=== PATIENT | female | born 1955 | race Caucasian/White ===

== ENCOUNTER 2022-09-26 11:22 | Inpatient (IN) | payer OTHER ==
[~2022-09-26 11:22] MED LIST: Iopamidol-370 76% 500 ML MDV (1 ML CHARGE) ONE
[2022-09-26 11:56] LABS: Hemoglobin 8.5 g/dL (12.0-16.0); Mean Corpuscular HGB CONC 30.4 g/dL (32.0-36.0); Mean Corpuscular Hemoglobin 20.4 pg (27.0-31.0); Mean Corpuscular Volume 67.3 fl (78.0-98.0); Mean Platelet Volume 8.5 fL (7.4-10.4); Platelet Count 844 10x3/uL (130-400); RBC Distribution Width 16.9 % (11.5-14.5); Red Blood Cell (RBC) Count 4.16 mill/uL (4.20-5.40); White Blood Cell (WBC) Count 25.5 10x3/uL (4.8-10.8)
[2022-09-26 12:01] LABS: Delete Auto Diff?? YES; Manual Diff?? YES
[2022-09-26 12:18] LABS: ALT (SGPT) 17 U/L (8-55); AST (SGOT) 13 U/L (5-34); Alkaline Phosphatase 64 U/L (40-110); Anion Gap 15 mmol/L (10-20); BUN (Urea Nitrogen) 14 mg/dL (9.8-20.1); Bilirubin, Total 0.4 mg/dL (0.2-1.2); Calc. Creatinine Clearance 0 mL/min (70-130); Calcium 8.6 mg/dL (7.8-10.44); Carbon Dioxide 22 mmol/L (23-31); Chloride 109 mmol/L (98-107); Estimated GFR 87; Globulin 2.9 g/dL (2.4-3.5); Glucose 127 mg/dL (80-115); Lipase Less than 4 U/L (8-78); Potassium 3.6 mmol/L (3.5-5.1); Protein, Total 5.9 g/dL (5.8-8.1); Sodium 142 mmol/L (136-145)
[2022-09-26 12:43] LABS: Anisocytosis SLIGHT = 6-15 cells HPF (0-5); Band 15 % (5-11); Burr Cells SLIGHT = 2-5 cells HPF (0-1); CellaVision Operator ID LAB.MJL; Elliptocytes SLIGHT = 2-5 cells HPF (0-1); Hypochromia SLIGHT = 6-15 cells HPF (0-5); Lymphocytes 2 % (21-51); Microcytosis SLIGHT = 6-15 cells HPF (0-5); Monocytes 4 % (0-10); Neutrophil 79 % (42-75); Ovalocytes SLIGHT = 2-5 cells HPF (0-1); Platelet Adequacy Comment Platelets Increased; Poikilocytosis SLIGHT = 6-15 cells HPF (0-5); Polychromasia SLIGHT = 2-3 cells HPF (0-2); Total Cell Count 100
[2022-09-26 13:10] LABS: INR-International Normal Ratio 1.1; PTT 27.5 sec (22.9-36.1); Prothrombin Time 14.2 sec (12.0-14.7)
[2022-09-26] MEDS ORDERED: Piperacillin/Tazobactam 3.375 GM VIAL ONE (13:33)
[2022-09-26 14:05] LABS: Bacteria/HPF None Seen HPF (None Seen); Bilirubin 1+ (Negative); Blood, Urine Negative (Negative); CAUTI Indications for Culture Pelvic or flank pain; Clarity Clear (Clear); Glucose, Urine (Dipstick) Normal (Negative); Ketone, Urine Negative (Negative); Leukocyte Negative Leu/uL (Negative); Mucous/LPF Rare LPF (<2+); Nitrite Negative (Negative); Protein, Urine (Dipstick) 10 mg/dL (Neg-Trace); RBC/HPF 0-3 HPF (0-3); Squamous Epithelial 0-3 HPF (0-3); Urobilinogen 3 mg/dL (Less than 2); WBC/HPF 0-3 HPF (0-3); pH, Urine 5.5 (5.0-9.0)
[2022-09-26 14:07] LABS: Urine Culture Reflex No No
[2022-09-26] MEDS ORDERED: Fentanyl 250 MCG/5 ML VIAL ONE (17:10)
[2022-09-26] MEDS ORDERED: Midazolam HCl 2 mg/2 ml Vial ONE (17:10)
[2022-09-26] MEDS ORDERED: Magnesium 5 GM/10 ML VIAL ONE (17:23)
[2022-09-26] MEDS ORDERED: PHENYLEPHRINE-NS 100 MCG/ML 10 ML SYRINGE ONE (17:33)
[2022-09-26] MEDS ORDERED: Succinylcholine 200 MG/10 ml SYRINGE FS ONE (17:33)
[2022-09-26] MEDS ORDERED: PROPOFOL 200 MG/20 ML VIAL ONE (17:33)
[2022-09-26] MEDS ORDERED: Dexamethasone 20 MG/5 ML VIAL ONE (17:33)
[2022-09-26] MEDS ORDERED: Rocuronium Bromide 10 MG/ML (10ML VIAL) ONE (17:33)
[2022-09-26] MEDS ORDERED: Ondansetron PF 4 MG/2 ML Vial ONE (17:33)
[2022-09-26] MEDS ORDERED: Glycopyrrolate 0.2 MG/ML 5 ML SYRINGE ONE (17:33)
[2022-09-26] MEDS ORDERED: NEOSTIGMINE 3 MG/3 ML SYR 3 MG/3 ML SYRINGE ONE (17:33)
[2022-09-26] MEDS ORDERED: Ipratropium/Albuterol 3 ML NEB NEB PRN (19:11)
[2022-09-26] MEDS ORDERED: Morphine 2 MG/ML VIAL SLOW IVP PRN ×2 (19:11→22:51)
[2022-09-26] MEDS ORDERED: Morphine 4 MG/ML VIAL SLOW IVP PRN (19:11)
[2022-09-26] MEDS ORDERED: Promethazine HCl 25 MG/ML VIAL IM PRN ×3 (19:13→20:11)
[2022-09-26] MEDS ORDERED: HYDROmorphone 10 mg/100 ml CADD IVPB PRN (19:13)
[2022-09-26] MEDS ORDERED: diphenhydrAMINE 50 MG/ML VIAL IM PRN ×2 (19:13→20:11)
[2022-09-26] MEDS ORDERED: diphenhydrAMINE 25 MG CAP PO PRN ×2 (19:13→20:11)
[2022-09-26] MEDS ORDERED: Ondansetron PF 4 MG/2 ML Vial IVP PRN ×2 (19:13→20:11)
[2022-09-26] MEDS ORDERED: diphenhydrAMINE 50 MG/ML VIAL IVP PRN ×2 (19:13→20:11)
[2022-09-26] MEDS ORDERED: Naloxone HCl 0.4 mg/ml Vial IV PRN ×2 (19:13→20:11)
[2022-09-26] MEDS ORDERED: Zolpidem Tartrate 5 MG TAB PO PRN ×2 (19:13→20:11)
[2022-09-26] MEDS ORDERED: Communication Order-Pharmacy FS SCH ×2 (19:15→20:15)
[2022-09-26] MEDS ORDERED: Ketorolac Tromethamine 30 MG/ML VIAL IVP SCH (19:15)
[2022-09-26] MEDS ORDERED: SUGAMMADEX SODIUM 200 MG/2 ML VIAL ONE (19:52)
[2022-09-26] MEDS ORDERED: Ondansetron HCl/PF 4 MG/2 ML Vial IVP PRN (20:11)
[2022-09-26] MEDS ORDERED: FENTANYL 500 MCG/10 ML VIAL 2,000 MCG in Sodium Chloride 0.9% 60 ML IV PRN (20:11)
[2022-09-26] MEDS ORDERED: Famotidine/PF 20 mg/2ml Vial SLOW IVP SCH (21:00)
[2022-09-26] MEDS: Sodium Chloride 0.9% 1,000 ML IV SCH ×2 (21:55→22:21)
[2022-09-26] MEDS ORDERED: traMADol HCl 50 MG TAB PO PRN (22:52)
[2022-09-26 23:07] LABS: #Monocytes 0.8 thou/uL (0.11-0.59); #Neutrophils 22.4 thou/uL (1.40-6.50); %Basophils 0.2 % (0.0-1.0); %Lymphocytes 5.2 % (21.0-51.0); %Monocytes 3.1 % (0.0-10.0); Hemoglobin 8.4 g/dL (12.0-16.0); Mean Corpuscular HGB CONC 29.6 g/dL (32.0-36.0); Mean Corpuscular Hemoglobin 20.4 pg (27.0-31.0); Mean Corpuscular Volume 69.1 fl (78.0-98.0); Mean Platelet Volume 8.8 fL (7.4-10.4); RBC Distribution Width 17.1 % (11.5-14.5); Red Blood Cell (RBC) Count 4.11 mill/uL (4.20-5.40); White Blood Cell (WBC) Count 24.6 10x3/uL (4.8-10.8)
[2022-09-26 23:19] LABS: Platelet Count 727 10x3/uL (130-400)
[2022-09-26] MEDS: Lactated Ringer's 1,000 ML IV SCH (23:23)
[2022-09-26] MEDS: Ketorolac Tromethamine 30 MG/ML VIAL IVP SCH (23:23)
[2022-09-26 23:43] VITALS: BMI 25.8
[2022-09-27] MEDS: Acetaminophen 325 MG TAB PO SCH ×6 (00:58→22:07)
[2022-09-27] MEDS: Sodium Chloride 0.9% 1,000 ML IV SCH ×3 (00:59→17:23)
[2022-09-27] MEDS: Ketorolac Tromethamine 30 MG/ML VIAL IVP SCH ×3 (05:42→17:25)
[2022-09-27 07:16] LABS: #Monocytes 0.8 thou/uL (0.11-0.59); #Neutrophils 19.6 thou/uL (1.40-6.50); %Basophils 0.2 % (0.0-1.0); %Lymphocytes 5.9 % (21.0-51.0); %Monocytes 3.8 % (0.0-10.0); %Neutrophils 89.6 % (42.0-75.0); Hemoglobin 7.9 g/dL (12.0-16.0); Mean Corpuscular HGB CONC 29.4 g/dL (32.0-36.0); Mean Corpuscular Hemoglobin 20.6 pg (27.0-31.0); Mean Corpuscular Volume 70.1 fl (78.0-98.0); Mean Platelet Volume 8.7 fL (7.4-10.4); Platelet Count 709 10x3/uL (130-400); Red Blood Cell (RBC) Count 3.84 mill/uL (4.20-5.40); White Blood Cell (WBC) Count 21.9 10x3/uL (4.8-10.8)
[2022-09-27 07:30] LABS: INR-International Normal Ratio 1.1; PTT 30.2 sec (22.9-36.1); Prothrombin Time 14.5 sec (12.0-14.7)
[2022-09-27 07:41] LABS: Anion Gap 12 mmol/L (10-20); BUN (Urea Nitrogen) 8 mg/dL (9.8-20.1); Calc. Creatinine Clearance 100 mL/min (70-130); Calcium 8.3 mg/dL (7.8-10.44); Carbon Dioxide 24 mmol/L (23-31); Chloride 108 mmol/L (98-107); Estimated GFR 97; Glucose 116 mg/dL (80-115); Magnesium 2.4 mg/dL (1.6-2.6); Sodium 140 mmol/L (136-145)
[2022-09-27] MEDS: Lactated Ringer's 1,000 ML IV SCH (08:12)
[2022-09-27] MEDS: Ferrous Sulfate 325 MG TAB PO SCH (08:12)
[2022-09-27] MEDS: Famotidine/PF 20 mg/2ml Vial SLOW IVP SCH ×2 (08:13→22:09)
[2022-09-27 18:13] LABS: #Eosinphils 0.1 thou/uL (0.0-0.7); #Neutrophils 14.8 thou/uL (1.40-6.50); %Basophils 0.2 % (0.0-1.0); %Eosinophils 0.3 % (0.0-10.0); %Lymphocytes 12.1 % (21.0-51.0); %Monocytes 5.3 % (0.0-10.0); %Neutrophils 81.5 % (42.0-75.0); Hemoglobin 7.1 g/dL (12.0-16.0); Mean Corpuscular Hemoglobin 20.2 pg (27.0-31.0); Mean Corpuscular Volume 69.6 fl (78.0-98.0); Mean Platelet Volume 8.5 fL (7.4-10.4); Platelet Count 613 10x3/uL (130-400); RBC Distribution Width 17.1 % (11.5-14.5); Red Blood Cell (RBC) Count 3.52 mill/uL (4.20-5.40); White Blood Cell (WBC) Count 18.1 10x3/uL (4.8-10.8)
[2022-09-27 18:34] LABS: Anisocytosis SLIGHT = 6-15 cells HPF (0-5); Burr Cells SLIGHT = 2-5 cells HPF (0-1); CellaVision Operator ID LAB.MJL; Elliptocytes SLIGHT = 2-5 cells HPF (0-1); Hypochromia SLIGHT = 6-15 cells HPF (0-5); Microcytosis SLIGHT = 6-15 cells HPF (0-5); Ovalocytes SLIGHT = 2-5 cells HPF (0-1); Platelet Adequacy Comment Platelets Increased; Poikilocytosis SLIGHT = 6-15 cells HPF (0-5); Polychromasia SLIGHT = 2-3 cells HPF (0-2)
[2022-09-28] MEDS: Acetaminophen 325 MG TAB PO SCH ×3 (00:40→08:24)
[2022-09-28] MEDS: Ketorolac Tromethamine 30 MG/ML VIAL IVP SCH ×4 (00:42→18:17)
[2022-09-28] MEDS: Sodium Chloride 0.9% 1,000 ML IV SCH ×3 (00:42→11:36)
[2022-09-28 07:26] LABS: #Eosinphils 0.3 thou/uL (0.0-0.7); #Monocytes 1.1 thou/uL (0.11-0.59); #Neutrophils 16.6 thou/uL (1.40-6.50); %Basophils 0.2 % (0.0-1.0); %Eosinophils 1.5 % (0.0-10.0); %Monocytes 5.6 % (0.0-10.0); %Neutrophils 81.1 % (42.0-75.0); Mean Corpuscular HGB CONC 29.5 g/dL (32.0-36.0); Mean Corpuscular Hemoglobin 20.8 pg (27.0-31.0); Mean Corpuscular Volume 70.3 fl (78.0-98.0); Mean Platelet Volume 8.8 fL (7.4-10.4); Platelet Count 605 10x3/uL (130-400); RBC Distribution Width 17.1 % (11.5-14.5); Red Blood Cell (RBC) Count 3.37 mill/uL (4.20-5.40); White Blood Cell (WBC) Count 20.4 10x3/uL (4.8-10.8)
[2022-09-28] MEDS: Ferrous Sulfate 325 MG TAB PO SCH (08:24)
[2022-09-28] MEDS: Famotidine/PF 20 mg/2ml Vial SLOW IVP SCH (08:25)
[2022-09-28 08:33] LABS: Anisocytosis SLIGHT = 6-15 cells HPF (0-5); Burr Cells SLIGHT = 2-5 cells HPF (0-1); CellaVision Operator ID LAB.NR; Elliptocytes SLIGHT = 2-5 cells HPF (0-1); Platelet Adequacy Comment Platelets Increased; Polychromasia SLIGHT = 2-3 cells HPF (0-2)
[2022-09-28] MEDS ORDERED: traMADol HCl 50 MG TAB PO PRN (11:25)
[2022-09-28] MEDS ORDERED: Acetaminophen 500 MG TAB PO SCH (11:30)
[2022-09-28] MEDS: Gabapentin 300 MG CAP PO SCH ×2 (16:04→21:15)
[2022-09-28 17:33] LABS: #Basophils 0.1 thou/uL (0.0-0.2); #Eosinphils 0.4 thou/uL (0.0-0.7); #Monocytes 0.9 thou/uL (0.11-0.59); #Neutrophils 19.3 thou/uL (1.40-6.50); %Basophils 0.2 % (0.0-1.0); %Eosinophils 1.6 % (0.0-10.0); %Lymphocytes 9.9 % (21.0-51.0); %Monocytes 3.8 % (0.0-10.0); %Neutrophils 83.6 % (42.0-75.0); Hemoglobin 8.7 g/dL (12.0-16.0); Mean Corpuscular HGB CONC 30.1 g/dL (32.0-36.0); Mean Corpuscular Hemoglobin 21.1 pg (27.0-31.0); Mean Corpuscular Volume 70.1 fl (78.0-98.0); Mean Platelet Volume 8.8 fL (7.4-10.4); Platelet Count 688 10x3/uL (130-400); RBC Distribution Width 17.3 % (11.5-14.5); Red Blood Cell (RBC) Count 4.12 mill/uL (4.20-5.40); White Blood Cell (WBC) Count 23.1 10x3/uL (4.8-10.8)
[2022-09-28] MEDS: Acetaminophen 500 MG TAB PO SCH ×2 (17:39→21:14)
[2022-09-29] MEDS: Ketorolac Tromethamine 30 MG/ML VIAL IVP SCH ×2 (00:35→06:25)
[2022-09-29 06:34] LABS: #Eosinphils 0.5 thou/uL (0.0-0.7); #Monocytes 0.9 thou/uL (0.11-0.59); #Neutrophils 14.6 thou/uL (1.40-6.50); %Basophils 0.2 % (0.0-1.0); %Eosinophils 2.6 % (0.0-10.0); %Lymphocytes 12.2 % (21.0-51.0); %Monocytes 5.1 % (0.0-10.0); %Neutrophils 79.2 % (42.0-75.0); Hemoglobin 8.3 g/dL (12.0-16.0); Mean Corpuscular HGB CONC 29.6 g/dL (32.0-36.0); Mean Corpuscular Hemoglobin 21.1 pg (27.0-31.0); Mean Platelet Volume 8.8 fL (7.4-10.4); Platelet Count 628 10x3/uL (130-400); RBC Distribution Width 17.2 % (11.5-14.5); Red Blood Cell (RBC) Count 3.93 mill/uL (4.20-5.40); White Blood Cell (WBC) Count 18.5 10x3/uL (4.8-10.8)
[2022-09-29 06:55] LABS: Mean Corpuscular Volume 71.2 fl (78.0-98.0)
[2022-09-29] MEDS ORDERED: Ibuprofen 600 MG TAB PO PRN (08:00)
[2022-09-29] MEDS: Gabapentin 300 MG CAP PO SCH ×3 (08:50→21:25)
[2022-09-29] MEDS: Acetaminophen 500 MG TAB PO SCH ×4 (08:50→21:26)
[2022-09-29] MEDS ORDERED: Piperacillin/Tazobactam 3.375 GM in Sodium Chloride 0.9% 100 ML IVPB SCH ×3 (11:45→14:00)
[2022-09-29 16:22] LABS: #Eosinphils 0.3 thou/uL (0.0-0.7); #Monocytes 0.9 thou/uL (0.11-0.59); #Neutrophils 15.7 thou/uL (1.40-6.50); %Basophils 0.2 % (0.0-1.0); %Eosinophils 1.7 % (0.0-10.0); %Monocytes 4.6 % (0.0-10.0); %Neutrophils 82.8 % (42.0-75.0); Hemoglobin 9.2 g/dL (12.0-16.0); Mean Corpuscular HGB CONC 30.6 g/dL (32.0-36.0); Mean Corpuscular Hemoglobin 21.4 pg (27.0-31.0); Mean Platelet Volume 8.5 fL (7.4-10.4); Platelet Count 693 10x3/uL (130-400); RBC Distribution Width 17.5 % (11.5-14.5)
[2022-09-29 16:46] LABS: Anisocytosis SLIGHT = 6-15 cells HPF (0-5); Burr Cells SLIGHT = 2-5 cells HPF (0-1); CellaVision Operator ID LAB.MJL; Elliptocytes SLIGHT = 2-5 cells HPF (0-1); Microcytosis SLIGHT = 6-15 cells HPF (0-5); Ovalocytes SLIGHT = 2-5 cells HPF (0-1); Platelet Adequacy Comment Platelets Increased; Poikilocytosis SLIGHT = 6-15 cells HPF (0-5); Polychromasia SLIGHT = 2-3 cells HPF (0-2)
[2022-09-29] MEDS: Piperacillin/Tazobactam 3.375 GM in Sodium Chloride 0.9% 100 ML IVPB SCH (17:17)
[2022-09-30] MEDS: Piperacillin/Tazobactam 3.375 GM in Sodium Chloride 0.9% 100 ML IVPB SCH ×3 (01:39→17:10)
[2022-09-30 07:29] LABS: Hemoglobin 10.7 g/dL (12.0-16.0); Mean Corpuscular HGB CONC 29.6 g/dL (32.0-36.0); Mean Corpuscular Hemoglobin 20.8 pg (27.0-31.0); Mean Corpuscular Volume 70.1 fl (78.0-98.0); Mean Platelet Volume 8.6 fL (7.4-10.4); Platelet Count 872 10x3/uL (130-400); RBC Distribution Width 18.6 % (11.5-14.5); Red Blood Cell (RBC) Count 5.15 mill/uL (4.20-5.40); White Blood Cell (WBC) Count 20.9 10x3/uL (4.8-10.8)
[2022-09-30 07:38] LABS: Delete Auto Diff?? YES; Manual Diff?? YES
[2022-09-30] MEDS: Saccharomyces boulardii 250 MG CAP PO SCH (08:46)
[2022-09-30] MEDS: Ondansetron PF 4 MG/2 ML Vial IVP PRN (08:46)
[2022-09-30] MEDS: Acetaminophen 500 MG TAB PO SCH ×4 (08:46→22:28)
[2022-09-30] MEDS: Gabapentin 300 MG CAP PO SCH ×3 (08:46→22:30)
[2022-09-30 10:09] LABS: Band 9 % (5-11); Burr Cells SLIGHT = 2-5 cells HPF (0-1); CellaVision Operator ID LAB.GE; Elliptocytes SLIGHT = 2-5 cells HPF (0-1); Eosinophils 1 % (0-10); Lymphocytes 8 % (21-51); Microcytosis SLIGHT = 6-15 cells HPF (0-5); Monocytes 4 % (0-10); Neutrophil 77 % (42-75); Platelet Adequacy Comment Platelets Increased; Polychromasia SLIGHT = 2-3 cells HPF (0-2); Reactive Lymphocytes 1 % (0-10); Total Cell Count 101
[2022-09-30] MEDS ORDERED: Calcium Carbonate 500 MG ChewTAB PO PRN (23:50)
[2022-10-01] MEDS: Piperacillin/Tazobactam 3.375 GM in Sodium Chloride 0.9% 100 ML IVPB SCH ×2 (02:45→09:02)
[2022-10-01] MEDS: Ondansetron PF 4 MG/2 ML Vial IVP PRN ×2 (06:14→15:24)
[2022-10-01 07:42] LABS: #Eosinphils 0.4 thou/uL (0.0-0.7); #Monocytes 0.8 thou/uL (0.11-0.59); #Neutrophils 11.7 thou/uL (1.40-6.50); %Basophils 0.3 % (0.0-1.0); %Eosinophils 2.6 % (0.0-10.0); %Lymphocytes 17.3 % (21.0-51.0); Hemoglobin 9.9 g/dL (12.0-16.0); Mean Corpuscular HGB CONC 29.2 g/dL (32.0-36.0); Mean Corpuscular Hemoglobin 20.6 pg (27.0-31.0); Mean Corpuscular Volume 70.6 fl (78.0-98.0); Mean Platelet Volume 8.7 fL (7.4-10.4); Platelet Count 836 10x3/uL (130-400); RBC Distribution Width 18.3 % (11.5-14.5); White Blood Cell (WBC) Count 15.8 10x3/uL (4.8-10.8)
[2022-10-01 08:02] LABS: Anion Gap 15 mmol/L (10-20); BUN (Urea Nitrogen) 11 mg/dL (9.8-20.1); Calc. Creatinine Clearance 97 mL/min (70-130); Calcium 8.5 mg/dL (7.8-10.44); Carbon Dioxide 23 mmol/L (23-31); Chloride 105 mmol/L (98-107); Estimated GFR 95; Glucose 92 mg/dL (80-115); Potassium 3.6 mmol/L (3.5-5.1); Sodium 139 mmol/L (136-145)
[2022-10-01] MEDS: Gabapentin 300 MG CAP PO SCH (08:56)
[2022-10-01] MEDS: Acetaminophen 500 MG TAB PO SCH (08:56)
[2022-10-01] MEDS: Saccharomyces boulardii 250 MG CAP PO SCH (08:56)
[2022-10-01] MEDS: Amoxicillin/Potassium Clav 875 MG TAB PO SCH ×2 (09:31→17:53)
[2022-10-01 11:07] LABS: Actual Bicarbonate (HCO3a) 22.6 mEq/L (22-28); Analyzer IN Cardio OR; Base Excess (BEa) -0.9 mEq/L (-2.0 to +3.0); CO2 Tension 32.1 mmHg (35.0-45.0); Calcium, Ionized (arterial) 1.34 mmol/L (1.12-1.30); Carboxyhemoglobin (COHb) 1.8 gm% (0.0-3.0); Hematocrit-ABG 24 % (36.0-47.0); Hemoglobin (Hb) 8.1 g/dL (12.0-16.0); O2 Tension (PaO2), arterial 146.5 mmHg (> 80.0); Potassium - ABG Lab 3.46 mmol/L (3.70-5.30); pH, Arterial 7.465 (7.35-7.45)
[2022-10-01 11:08] LABS: Puncture Site Arterial Line
[2022-10-01] MEDS ORDERED: Scopolamine 1.5 mg/72 hour Patch TD SCH (20:00)
[2022-10-02] MEDS: Amoxicillin/Potassium Clav 875 MG TAB PO SCH ×2 (01:28→09:03)
[2022-10-02 03:47] VITALS: TEMP 97.7
[2022-10-02 08:38] VITALS: BP 123/81
[2022-10-02] MEDS: Saccharomyces boulardii 250 MG CAP PO SCH (09:03)
== END 2022-10-02 14:37 | disposition home or self-care (01) | DRG 853 ==
LOC: ERS 11:22 → ERHOLD 13:38 → T4-B 17:36 → SURG B 21:21 → T4-B 21:35
PROVIDERS: ADMIT Surgery; ATTEND Surgery
PROC: 0DTN0ZZ Resection of Sigmoid Colon, Open Approach (ICD-10-PCS; principal; 2022-09-26)
PROC: 0DJD4ZZ Inspection of Lower Intestinal Tract, Percutaneous Endoscopic Approach (ICD-10-PCS; 2022-09-26)
PROC: 0D1B0Z4 Bypass Ileum to Cutaneous, Open Approach (ICD-10-PCS; 2022-09-26)
PROC: 3E0M05Z Introduction of Adhesion Barrier into Peritoneal Cavity, Open Approach (ICD-10-PCS; 2022-09-26)
PROC: 4A033R1 Measurement of Arterial Saturation, Peripheral, Percutaneous Approach (ICD-10-PCS; 2022-09-26)
PROC: 30233N1 Transfusion of Nonautologous Red Blood Cells into Peripheral Vein, Percutaneous Approach (ICD-10-PCS; 2022-09-28)
DX: A41.9 Sepsis, unspecified organism (principal); K63.1 Perforation of intestine (nontraumatic); C18.7 Malignant neoplasm of sigmoid colon; E86.0 Dehydration; D64.9 Anemia, unspecified; H54.61 Unqualified visual loss, right eye, normal vision left eye; Z82.49 Family history of ischemic heart disease and other diseases of the circulatory system; Z80.8 Family history of malignant neoplasm of other organs or systems
CPT/HCPCS: 36415; 36416; 36430; 71045; 74177; 80048; 80053; 81001; 82378; 82805; 83605; 83690; 83735; 84100; 85025; 85610; 85730; 86301; 86850; 86900; 86901; 87040; 87086; 88309; 93005; 93010; 96361; 96365; 97139; C1713; C1776; J1100; J1885; J2250; J2405; J2543; J2704; J3010; J3475; J3490; J7050; J7120; P9016; Q9967; S0028

== ENCOUNTER 2022-11-14 07:19 | Outpatient (CLI) | payer OTHER ==
[2022-11-14] MEDS ORDERED: MD-Gastroview 120 ML BOT ONE (13:10)
== END 2022-11-14 07:20 | disposition home or self-care (01) ==
LOC: RAD 07:19
PROVIDERS: ATTEND Surgery
DX: Z43.2 Encounter for attention to ileostomy (principal); K57.30 Diverticulosis of large intestine without perforation or abscess without bleeding
CPT/HCPCS: 74280; Q9963

== ENCOUNTER 2022-12-26 08:01 | Outpatient (CLI) | payer MEDICARE, OTHER ==
[2022-12-26] MEDS ORDERED: Iopamidol 370 76% 100 ML VIAL ONE (13:56)
== END 2022-12-26 08:02 | disposition home or self-care (01) ==
LOC: CT 08:01
PROVIDERS: ATTEND Internal Medicine
DX: C18.7 Malignant neoplasm of sigmoid colon (principal); K76.9 Liver disease, unspecified
CPT/HCPCS: 71260; 74177; 82565